=== PATIENT | female | born 1940 | race Caucasian/White ===

== ENCOUNTER 2019-07-11 19:28 | Emergency (ER) | payer MEDICARE, OTHER ==
[~2019-07-11] VITALS: Ht 160 cm; Wt 63.5 kg
[~2019-07-11 19:28] MED LIST: AMLO10 PO; AZIT250 PO; BUME2 PO; Chondroitin Su250 MG PO; DIGO.25; DOCU100 PO; FLUT110OIA IH; GLUC500; LISI20 PO; LORA10ER; Lanoxin125 MCG PO; MELO7.5 PO; METO100ER; METO50 PO; MIRALAX17 GM PO; Micro-K10 MEQ PO; OMEP20ER; OMEPRAZOLE MAGN20 MG PO; QUIN300 PO; SIMV10 PO; TRAM50 PO; TRAZ50 PO; WARF4 PO; WARF5; WARF5 PO
[2019-07-11 20:13] LABS: BASOPHILS ABSOLUTE AUTO 0.02 K/mm3 (0.00-0.23); BASOPHILS PERCENT AUTO 0 % (0-2); EOSINOPHILS ABSOLUTE AUTO 0.03 K/mm3 (0.00-0.68); EOSINOPHILS PERCENT AUTO 0 % (0-6); Hematocrit 39.4 % (33.0-51.0); Hemoglobin 13.6 g/dL (11.5-16.0); IMMATURE GRAN ABSOLUTE AUTO 0.02 K/mm3 (0.00-0.10); IMMATURE GRAN PERCENT AUTO 0 % (0-1); LYMPHOCYTES ABSOLUTE AUTO 1.86 K/mm3 (0.84-5.20); LYMPHOCYTES PERCENT AUTO 18 % (21-46); MONOCYTES ABSOLUTE AUTO 0.82 K/mm3 (0.16-1.47); MONOCYTES PERCENT AUTO 8 % (4-13); Mean Corpuscular HGB 34.5 pg (26.0-34.0); Mean Corpuscular HGB Conc 34.5 g/dL (31.5-36.5); Mean Corpuscular Volume 100 fL (80-100); NEUTROPHILS ABSOLUTE AUTO 7.76 K/mm3 (1.96-9.15); NEUTROPHILS PERCENT AUTO 74 % (41-73); Platelet Count 162 K/mm3 (150-400); RDW Coefficient Variation 12.7 % (11.7-14.2); RDW Standard Deviation 46.8 fL (35.1-46.3); Red Blood Cell Count 3.94 M/mm3 (3.80-5.20); White Blood Cell Count 10.51 K/mm3 (4.00-11.30)
[2019-07-11 20:32] LABS: Albumin, Blood 4.2 g/dL (3.4-5.0); Albumin/Globulin Ratio 1.2 (0.8-1.8); Bilirubin, Total 0.9 mg/dL (0.1-1.0); Bun/Creatinine Ratio 26.3 (12.0-20.0); Calcium, Blood 9.6 mg/dL (8.5-10.1); Creatinine, Blood 0.99 mg/dL (0.40-1.00); Globulin, Blood 3.5 g/dL (2.2-4.0); Potassium, Blood 3.5 mmol/L (3.5-5.5); Total Protein, Blood 7.7 g/dL (6.4-8.2)
[2019-07-11] MEDS ORDERED: WARF2.5 PO (23:31)
[2019-07-11] MEDS ORDERED: TELM40 PO (23:31)
[2019-07-11] MEDS ORDERED: MEMANTINE HCL1 EACH PO (23:32)
[2019-07-11] MEDS ORDERED: WARF5 PO (23:33)
[2019-07-11 23:57] LABS: Source, Urine Clean Catch
[2019-07-11 23:59] LABS: Bilirubin, Urine Neg (Neg); Blood, Urine 3+ (Neg); Glucose Qualitative, Urine Neg (Neg); Ketones, Urine 1+ (Neg); Leukocyte Esterase, Urine 1+ (Neg); Nitrite, Urine Neg (Neg); Protein, Urine 3+ (Neg); Urobilinogen, Urine NORM (Normal)
[2019-07-12 00:11] LABS: Appearance, Urine Clear (Clear); Color, Urine Yellow (P-Yellow)
[2019-07-12 00:13] LABS: Amorphous Light (0-Heavy); Bacteria Rare /hpf; Squamous Epithelial Cells Rare /hpf (Few); White Blood Cells, Urine 0-2 /hpf (0-5)
== END 2019-07-12 02:00 | disposition home or self-care (01) ==
LOC: ER 19:28
PROVIDERS: Physician Assistant
DX: I10 Essential (primary) hypertension (principal); E11.9 Type 2 diabetes mellitus without complications; I48.91 Unspecified atrial fibrillation; K21.9 Gastro-esophageal reflux disease without esophagitis; Z87.891 Personal history of nicotine dependence; Z95.0 Presence of cardiac pacemaker; Z88.0 Allergy status to penicillin; Z88.1 Allergy status to other antibiotic agents; Z88.5 Allergy status to narcotic agent; Z79.899 Other long term (current) drug therapy; Z79.01 Long term (current) use of anticoagulants
CPT/HCPCS: 36415; 80053; 81001; 85025; 87086; 93005; 93010; 96374; 99283-25; J0360; P9612

== ENCOUNTER 2020-08-16 09:10 | Day surgery (SDC) | payer MEDICARE, OTHER ==
[~2020-08-16 09:10] MED LIST changes: +MEMANTINE HCL1 EACH PO; +TELM40 PO; +WARF2.5 PO
== END 2020-08-16 23:06 | disposition home or self-care (01) ==
LOC: MOI US 09:10
DX: C50.411 Malignant neoplasm of upper-outer quadrant of right female breast (principal); Z17.1 Estrogen receptor negative status [ER-]; Z88.0 Allergy status to penicillin; Z88.1 Allergy status to other antibiotic agents; Z88.5 Allergy status to narcotic agent; Z88.8 Allergy status to other drugs, medicaments and biological substances; Z79.51 Long term (current) use of inhaled steroids; Z79.01 Long term (current) use of anticoagulants; Z79.899 Other long term (current) drug therapy
CPT/HCPCS: 19083; 77065; A4648

== ENCOUNTER 2020-10-10 08:12 | Day surgery (SDC) | payer MEDICARE, OTHER ==
[~2020-10-10] VITALS: Ht 160 cm; Wt 66.6 kg
[~2020-10-10 08:12] MED LIST changes: +Amaryl1 MG PO; +CITA20 PO; +Crestor20 MG PO; +DONEPEZIL HCL10 MG PO; +HYDPAM25 PO; +JARDIANCE25 MG PO; +LANOXIN125 MCG PO; -Lanoxin125 MCG PO; +MEMA10 PO; -MEMANTINE HCL1 EACH PO
--- NOTE | 2020-10-10 14:08 | NUR ---
Patient up to Ambulate independently. Gait steady. Discharge instructions reviewed with patient/daughter. Patient/daughter verbalizes understanding. Copy given to patient/daughter to take home. Dressing to procedure site clean, dry, intact with no visible drainage, swelling, erythema or bruising noted. BRENNAN drain in placed. Educated/instructed daughter how to drain BRENNAN. Discharged via wheelchair to private car for ride home.
--- NOTE | 2020-10-11 09:04 | NUR ---
10/11/20 0904 Renetta Garcia VERIFICATIONS: EDIT CHART.
== END 2020-10-10 13:44 | disposition home or self-care (01) ==
LOC: ORSCMMR 08:12 → NM 08:12 → ORSCMMR 09:55 → NM 13:44
PROVIDERS: Surgery
PROC: 07B50ZX Excision of Right Axillary Lymphatic, Open Approach, Diagnostic (ICD-10-PCS; principal; 2020-10-10 10:00)
PROC: 0HBT0ZZ Excision of Right Breast, Open Approach (ICD-10-PCS; principal; 2020-10-10 10:00)
DX: C50.411 Malignant neoplasm of upper-outer quadrant of right female breast (principal); D36.0 Benign neoplasm of lymph nodes; I10 Essential (primary) hypertension; E11.9 Type 2 diabetes mellitus without complications; I48.91 Unspecified atrial fibrillation; Z79.01 Long term (current) use of anticoagulants; Z95.0 Presence of cardiac pacemaker; G47.33 Obstructive sleep apnea (adult) (pediatric); K21.9 Gastro-esophageal reflux disease without esophagitis; Z79.899 Other long term (current) drug therapy
CPT/HCPCS: 38792; 82947; A9520; J1100; J2250; J2405; J2704; J3010; J7120

== ENCOUNTER 2021-03-03 10:12 | Emergency (ER) | payer MEDICARE, OTHER ==
[~2021-03-03] VITALS: Ht 162.6 cm; Wt 61.2 kg
[2021-03-03] MEDS ORDERED: TRAZ100 PO (10:32)
[2021-03-03 10:51] LABS: International Normalized Ratio 2.18; Prothrombin Time Results 22.5 Sec (9.7-11.5)
[2021-03-03 10:56] LABS: BASOPHILS ABSOLUTE AUTO 0.01 K/mm3 (0.00-0.23); BASOPHILS PERCENT AUTO 0 % (0-2); EOSINOPHILS PERCENT AUTO 2 % (0-6); Hematocrit 37.4 % (33.0-51.0); Hemoglobin 12.2 g/dL (11.5-16.0); IMMATURE GRAN ABSOLUTE AUTO 0.01 K/mm3 (0.00-0.10); IMMATURE GRAN PERCENT AUTO 0 % (0-1); LYMPHOCYTES PERCENT AUTO 25 % (21-46); MONOCYTES ABSOLUTE AUTO 0.41 K/mm3 (0.16-1.47); MONOCYTES PERCENT AUTO 9 % (4-13); Mean Corpuscular HGB Conc 32.6 g/dL (31.5-36.5); Mean Corpuscular Volume 98 fL (80-100); Mean Platelet Volume 11.1 fL (9.1-12.4); NEUTROPHILS ABSOLUTE AUTO 2.71 K/mm3 (1.96-9.15); NEUTROPHILS PERCENT AUTO 63 % (41-73); Platelet Count 110 K/mm3 (150-400); RDW Coefficient Variation 13.3 % (11.7-14.2); RDW Standard Deviation 47.2 fL (35.1-46.3); Red Blood Cell Count 3.81 M/mm3 (3.80-5.20); White Blood Cell Count 4.34 K/mm3 (4.00-11.30)
[2021-03-03 10:58] LABS: Source, Urine Catheter
[2021-03-03 11:01] LABS: Appearance, Urine Clear (Clear); Bilirubin, Urine Neg (Neg); Blood, Urine Neg (Neg); Color, Urine Yellow (P-Yellow); Glucose Qualitative, Urine 4+ (Neg); Ketones, Urine Neg (Neg); Leukocyte Esterase, Urine Neg (Neg); Nitrite, Urine Neg (Neg); Protein, Urine Neg (Neg); Specific Gravity, Urine 1.015 (1.003-1.022); Urobilinogen, Urine NORM (Normal)
[2021-03-03 11:05] LABS: Albumin, Blood 3.7 g/dL (3.4-5.0); Albumin/Globulin Ratio 1.1 (0.8-1.8); Bilirubin, Total 0.5 mg/dL (0.1-1.0); Bun/Creatinine Ratio 19.4 (12.0-20.0); Calcium, Blood 8.8 mg/dL (8.5-10.1); Creatinine, Blood 1.39 mg/dL (0.40-1.00); Globulin, Blood 3.3 g/dL (2.2-4.0); Potassium, Blood 4.2 mmol/L (3.5-5.5)
[2021-03-03 11:08] LABS: Magnesium, Blood 2.3 mg/dL (1.6-2.4); Troponin I <0.015 ng/mL (0.000-0.040)
[2021-03-03 11:41] LABS: Digoxin (Lanoxin) 1.01 ug/mL (0.80-2.00)
== END 2021-03-03 13:33 | disposition home or self-care (01) ==
LOC: ER 10:12
PROVIDERS: Emergency Medicine
DX: S01.01XA Laceration without foreign body of scalp, initial encounter (principal); I10 Essential (primary) hypertension; E11.9 Type 2 diabetes mellitus without complications; K21.9 Gastro-esophageal reflux disease without esophagitis; I48.91 Unspecified atrial fibrillation; Z95.0 Presence of cardiac pacemaker; Z79.01 Long term (current) use of anticoagulants; Z88.0 Allergy status to penicillin; Z88.5 Allergy status to narcotic agent; Z88.8 Allergy status to other drugs, medicaments and biological substances; W18.30XA Fall on same level, unspecified, initial encounter
CPT/HCPCS: 70450; 71045; 72125; 80053; 80162; 81003; 83605; 83690; 83735; 84145; 84484; 85025; 85610; 86850; 86900; 86901; 90471; 90714; 93005; 93010; 99285-25; P9612

== ENCOUNTER → 2021-05-01 | Outpatient (CLI) | payer MEDICARE, OTHER ==
[~2021-05-01] MED LIST changes: +TRAZ100 PO
[2021-05-01 12:05] LABS: Appearance, Urine Clear (Clear); Bilirubin, Urine Neg (Neg); Blood, Urine 1+ (Neg); Color, Urine Yellow (P-Yellow); Glucose Qualitative, Urine 4+ (Neg); Ketones, Urine Neg (Neg); Leukocyte Esterase, Urine 2+ (Neg); Nitrite, Urine Neg (Neg); Protein, Urine 2+ (Neg); Urobilinogen, Urine 2+ (Normal)
[2021-05-01 13:07] LABS: Squamous Epithelial Cells Mod /hpf (Few); Transitional Epithelial Cells Rare /hpf (0-Rare)
[2021-05-01 13:08] LABS: Bacteria Rare /hpf; Red Blood Cells, Urine 0-2 /hpf (0-2)
== END | disposition home or self-care (01) ==
LOC: LAB 11:29 → LAB SHORT 11:29
PROVIDERS: Registered Nurse
DX: N39.0 Urinary tract infection, site not specified (principal)
CPT/HCPCS: 81001; 87086; 87147

== ENCOUNTER 2021-09-04 11:16 | Day surgery (SDC) | payer MEDICARE, OTHER ==
[~2021-09-04] VITALS: Ht 160 cm; Wt 55.2 kg
[2021-09-04] MEDS ORDERED: KETO.5OPSO (11:46)
[2021-09-04] MEDS ORDERED: MIRALAX17 GM (11:48)
[2021-09-04] MEDS ORDERED: Floxin10 ML BOTHEYES (11:48)
[2021-09-04] MEDS ORDERED: Celexa20 MG PO (11:49)
[2021-09-04] MEDS ORDERED: DOCU100 PO (11:50)
[2021-09-04] MEDS ORDERED: ERYT.5TO BOTHEYES (11:50)
--- NOTE | 2021-09-04 11:57 | NUR ---
09/04/21 Alfredo7 Ronan Vines CALL LIGHT WITHIN REACH. EYE DROP IN [address] AT 1148
== END 2021-09-04 13:11 | disposition home or self-care (01) ==
LOC: ORSCSDS 11:16
PROVIDERS: Ophthalmology
PROC: 08RK3JZ Replacement of Left Lens with Synthetic Substitute, Percutaneous Approach (ICD-10-PCS; principal; 2021-09-04 12:30)
DX: H25.12 Age-related nuclear cataract, left eye (principal); I10 Essential (primary) hypertension; I48.91 Unspecified atrial fibrillation; Z79.01 Long term (current) use of anticoagulants; Z95.0 Presence of cardiac pacemaker; E11.9 Type 2 diabetes mellitus without complications; K21.9 Gastro-esophageal reflux disease without esophagitis; Z79.899 Other long term (current) drug therapy; F03.90 Unspecified dementia, unspecified severity, without behavioral disturbance, psychotic disturbance, mood disturbance, and anxiety
CPT/HCPCS: 82947; J2001; J2250; J3010; J3301; J7040; V2632

== ENCOUNTER 2021-10-02 09:26 | Day surgery (SDC) | payer MEDICARE, OTHER ==
[~2021-10-02] VITALS: Ht 157.5 cm; Wt 54.4 kg
[~2021-10-02 09:26] MED LIST changes: +Celexa20 MG PO; +ERYT.5TO BOTHEYES; +Floxin10 ML BOTHEYES; +KETO.5OPSO; +MIRALAX17 GM
--- NOTE | 2021-10-02 10:06 | NUR ---
10/02/21 1006 LEON WEBBER TETRACAINE DROP INSTILLED AT 1000. PLEDGETT INSERTED AT 1001.
== END 2021-10-02 15:23 | disposition home or self-care (01) ==
LOC: ORSCSDS 09:26
PROVIDERS: Ophthalmology
PROC: 08RJ3JZ Replacement of Right Lens with Synthetic Substitute, Percutaneous Approach (ICD-10-PCS; principal; 2021-10-02 11:00)
DX: H25.11 Age-related nuclear cataract, right eye (principal); I10 Essential (primary) hypertension; I48.91 Unspecified atrial fibrillation; Z79.01 Long term (current) use of anticoagulants; Z95.0 Presence of cardiac pacemaker; Z79.899 Other long term (current) drug therapy; E78.5 Hyperlipidemia, unspecified; E13.8 Other specified diabetes mellitus with unspecified complications; Z79.84 Long term (current) use of oral hypoglycemic drugs
CPT/HCPCS: 82947; J2001; J2250; J3010; J3301; J7040; V2632

== ENCOUNTER → 2024-02-16 | Outpatient (CLI) | payer OTHER ==
[~2024-02-16] MED LIST changes: +ACET500 PO; +CORICIDIN HBP; +MACRODANTIN100 M1 PO; +RYBELSUS7 MG PO; +XARELTO20 MG PO
[2024-02-17 15:20] LABS: Appearance, Urine Clear (Clear); Bilirubin, Urine Neg (Neg); Blood, Urine 1+ (Neg); Color, Urine Yellow (P-Yellow); Glucose Qualitative, Urine 4+ (Neg); Ketones, Urine Neg (Neg); Leukocyte Esterase, Urine 1+ (Neg); Nitrite, Urine Neg (Neg); Protein, Urine 2+ (Neg); Urobilinogen, Urine NORM (Normal)
[2024-02-17 15:35] LABS: Bacteria Few /hpf; Squamous Epithelial Cells Few /hpf (Few)
== END | disposition home or self-care (01) ==
LOC: LAB SHORT 18:32 → LAB EV 18:32
PROVIDERS: Registered Nurse
DX: N39.0 Urinary tract infection, site not specified (principal)
CPT/HCPCS: 81001; 87086

== ENCOUNTER 2024-02-23 15:35 | Emergency (ER) | payer OTHER ==
[~2024-02-23] VITALS: Ht 162.6 cm; Wt 54.4 kg
[2024-02-23 15:35] VITALS: BP 153/85
== END 2024-02-23 18:03 | disposition home or self-care (01) ==
LOC: ER 15:35
DX: S70.02XA Contusion of left hip, initial encounter (principal); S00.83XA Contusion of other part of head, initial encounter; I10 Essential (primary) hypertension; E11.9 Type 2 diabetes mellitus without complications; J45.909 Unspecified asthma, uncomplicated; W18.30XA Fall on same level, unspecified, initial encounter; Z88.0 Allergy status to penicillin; Z88.5 Allergy status to narcotic agent; Z88.1 Allergy status to other antibiotic agents; Z88.8 Allergy status to other drugs, medicaments and biological substances; Z79.899 Other long term (current) drug therapy
CPT/HCPCS: 70450; 73502; 99284-25

== ENCOUNTER → 2024-03-28 | Outpatient (CLI) | payer OTHER ==
[~2024-03-28] MED LIST changes: +LEVO750 PO
[2024-03-29 14:23] LABS: Appearance, Urine Hazy (Clear); Bilirubin, Urine Neg (Neg); Blood, Urine 2+ (Neg); Color, Urine Yellow (P-Yellow); Glucose Qualitative, Urine 4+ (Neg); Ketones, Urine Neg (Neg); Leukocyte Esterase, Urine 3+ (Neg); Nitrite, Urine Neg (Neg); Protein, Urine 3+ (Neg); Specific Gravity, Urine 1.015 (1.003-1.022); Urobilinogen, Urine 1+ (Normal)
[2024-03-29 14:36] LABS: Bacteria Many /hpf; Hyaline Casts 0-2 /lpf (0-2); Red Blood Cells, Urine 0-2 /hpf (0-2); Squamous Epithelial Cells Mod /hpf (Few); Transitional Epithelial Cells Few /hpf (0-Rare); White Blood Cells, Urine 50-100 /hpf (0-5)
== END ==
LOC: LAB 09:04 → LAB SHORT 09:04
PROVIDERS: Registered Nurse
DX: N39.0 Urinary tract infection, site not specified (principal)
CPT/HCPCS: 81001; 87086; 87106

== ENCOUNTER 2024-04-13 22:38 | Emergency (ER) | payer OTHER ==
[~2024-04-13] VITALS: Ht 157.5 cm; Wt 59.0 kg
[2024-04-13] MEDS ORDERED: NS 1,000 ML IV SCH (22:45)
[2024-04-13 23:16] LABS: BASOPHILS ABSOLUTE AUTO 0.02 K/mm3 (0.00-0.23); BASOPHILS PERCENT AUTO 0 % (0-2); EOSINOPHILS ABSOLUTE AUTO 0.05 K/mm3 (0.00-0.68); EOSINOPHILS PERCENT AUTO 1 % (0-6); Hematocrit 43.5 % (33.0-51.0); Hemoglobin 13.2 g/dL (11.5-16.0); IMMATURE GRAN ABSOLUTE AUTO 0.02 K/mm3 (0.00-0.10); IMMATURE GRAN PERCENT AUTO 0 % (0-1); LYMPHOCYTES ABSOLUTE AUTO 0.46 K/mm3 (0.84-5.20); LYMPHOCYTES PERCENT AUTO 5 % (21-46); MONOCYTES ABSOLUTE AUTO 0.31 K/mm3 (0.16-1.47); MONOCYTES PERCENT AUTO 3 % (4-13); Mean Corpuscular HGB 27.9 pg (26.0-34.0); Mean Corpuscular HGB Conc 30.3 g/dL (31.5-36.5); Mean Corpuscular Volume 92 fL (80-100); Mean Platelet Volume 10.6 fL (9.1-12.4); NEUTROPHILS ABSOLUTE AUTO 9.45 K/mm3 (1.96-9.15); NEUTROPHILS PERCENT AUTO 92 % (41-73); Platelet Count 135 K/mm3 (150-400); RDW Coefficient Variation 17.7 % (11.7-14.2); RDW Standard Deviation 59.5 fL (35.1-46.3); Red Blood Cell Count 4.73 M/mm3 (3.80-5.20); White Blood Cell Count 10.31 K/mm3 (4.00-11.30)
[2024-04-13 23:43] LABS: Albumin, Blood 3.9 g/dL (3.4-5.0); Albumin/Globulin Ratio 0.9 (0.8-1.8); Bilirubin, Total 1.3 mg/dL (0.1-1.0); Bun/Creatinine Ratio 18.1 (12.0-20.0); Calcium, Blood 8.9 mg/dL (8.5-10.1); Creatinine, Blood 0.88 mg/dL (0.40-1.00); Globulin, Blood 4.2 g/dL (2.2-4.0); Potassium, Blood 3.1 mmol/L (3.5-5.5); Total Protein, Blood 8.1 g/dL (6.4-8.2)
[2024-04-13] MEDS ORDERED: Ondansetron HCl 2 MG / ML 2ML Vial IV ONE (23:50)
[2024-04-13 23:51] LABS: Influenza A, PCR NEGATIVE (NEGATIVE); Influenza B, PCR NEGATIVE (NEGATIVE); Resp Syncytial Virus, PCR NEGATIVE (NEGATIVE); SARS-Cov-2 (COVID-19) PCR, MMC NEGATIVE (NEGATIVE)
[2024-04-14 00:19] VITALS: BP 162/96
[2024-04-14] MEDS ORDERED: ONDA4 PO (02:38)
[2024-04-14] MEDS ORDERED: RX Prepack 2 Tabs Ondansetron ODT 4MG UD ONE (02:40)
== END 2024-04-14 02:58 | disposition home or self-care (01) ==
LOC: ER 22:38
PROVIDERS: Emergency Medicine
DX: R11.2 Nausea with vomiting, unspecified (principal); I10 Essential (primary) hypertension; E11.9 Type 2 diabetes mellitus without complications; I48.91 Unspecified atrial fibrillation; Z88.0 Allergy status to penicillin; Z88.8 Allergy status to other drugs, medicaments and biological substances; Z88.5 Allergy status to narcotic agent; Z88.1 Allergy status to other antibiotic agents; Z79.899 Other long term (current) drug therapy
CPT/HCPCS: 0241U; 80053; 83690; 84484; 85025; 93005; 93010; 96361; 96374; 99284-25; A9270; J2405; J7030

== ENCOUNTER 2024-04-20 20:09 | Emergency (ER) | payer OTHER ==
[~2024-04-20] VITALS: Ht 167.6 cm; Wt 65.8 kg
[~2024-04-20 20:09] MED LIST changes: +ONDA4 PO
[2024-04-20 21:18] LABS: BASOPHILS ABSOLUTE AUTO 0.02 K/mm3 (0.00-0.23); BASOPHILS PERCENT AUTO 0 % (0-2); EOSINOPHILS ABSOLUTE AUTO 0.02 K/mm3 (0.00-0.68); EOSINOPHILS PERCENT AUTO 0 % (0-6); Hematocrit 38.4 % (33.0-51.0); IMMATURE GRAN ABSOLUTE AUTO 0.04 K/mm3 (0.00-0.10); IMMATURE GRAN PERCENT AUTO 1 % (0-1); LYMPHOCYTES ABSOLUTE AUTO 1.02 K/mm3 (0.84-5.20); LYMPHOCYTES PERCENT AUTO 16 % (21-46); MONOCYTES ABSOLUTE AUTO 0.47 K/mm3 (0.16-1.47); MONOCYTES PERCENT AUTO 7 % (4-13); Mean Corpuscular HGB 28.2 pg (26.0-34.0); Mean Corpuscular HGB Conc 31.3 g/dL (31.5-36.5); Mean Corpuscular Volume 90 fL (80-100); NEUTROPHILS ABSOLUTE AUTO 4.87 K/mm3 (1.96-9.15); NEUTROPHILS PERCENT AUTO 76 % (41-73); Platelet Count 133 K/mm3 (150-400); RDW Coefficient Variation 17.8 % (11.7-14.2); RDW Standard Deviation 57.8 fL (35.1-46.3); Red Blood Cell Count 4.25 M/mm3 (3.80-5.20); White Blood Cell Count 6.44 K/mm3 (4.00-11.30)
[2024-04-20 21:38] LABS: Albumin, Blood 3.5 g/dL (3.4-5.0); Albumin/Globulin Ratio 0.9 (0.8-1.8); Bilirubin, Total 1.1 mg/dL (0.1-1.0); Bun/Creatinine Ratio 16.5 (12.0-20.0); Calcium, Blood 8.8 mg/dL (8.5-10.1); Creatinine, Blood 0.79 mg/dL (0.40-1.00); Globulin, Blood 3.7 g/dL (2.2-4.0); Potassium, Blood 2.9 mmol/L (3.5-5.5); Total Protein, Blood 7.2 g/dL (6.4-8.2)
[2024-04-21] MEDS ORDERED: LEVE500 PO ×3 (05:48→09:48)
[2024-04-21] MEDS ORDERED: levETIRAcetam 1,000 MG in NS 100 ML IV ONE (05:50)
[2024-04-21 07:24] VITALS: BP 177/87
[2024-04-21] MEDS ORDERED: HydrALAZINE HCl 20 MG / ML 1ML Vial IV ONE (07:30)
[2024-04-21] MEDS ORDERED: NYSTRIT TOP (07:46)
[2024-04-21] MEDS ORDERED: Metoprolol Succinate 50 MG TABCR PO ONE (07:50)
[2024-04-21] MEDS ORDERED: MORP20L PO ×2 (10:02→10:05)
[2024-04-21] MEDS ORDERED: Ativan0.5 MG PO (10:02)
[2024-04-21] MEDS ORDERED: HYOS.125 PO ×2 (10:02→10:05)
[2024-04-21] MEDS ORDERED: LORA.5 PO (10:05)
== END 2024-04-21 12:15 | disposition home or self-care (01) ==
LOC: ER 20:09
PROVIDERS: Emergency Medicine
DX: S06.30AA Unspecified focal traumatic brain injury with loss of consciousness status unknown, initial encounter (principal); F03.90 Unspecified dementia, unspecified severity, without behavioral disturbance, psychotic disturbance, mood disturbance, and anxiety; E11.9 Type 2 diabetes mellitus without complications; I10 Essential (primary) hypertension; I48.0 Paroxysmal atrial fibrillation; W17.89XA Other fall from one level to another, initial encounter
CPT/HCPCS: 70450; 71045; 72125; 80053; 85025; 93005; 93010; 96365; 99285-25; A9270; J1953